=== PATIENT | female | born 1945 | race Caucasian/White ===

== ENCOUNTER 2016-08-13 13:33 | Emergency (ER) | payer MEDICARE, OTHER ==
[~2016-08-13 13:33] MED LIST: ASAB PO; CARDCD180 PO; CARDCD240 PO; DEMA20 PO; DENIES HOME MEDS; ELIQUIS 5 MG TAB5 MG PO; FISH OIL OTC PO; FLAG500TAB PO; FLECAINIDE100 MG PO; FLECAINIDE50 MG PO; IBU-200200 MG PO; KRILLOIL PO; MAGOX4 PO; MIRALAXPKT PO; MULTIVIT/MIN PO; MYLANTA LIQUID PO; NORV5 PO; POTASSIUM 99 PO; POTASSIUM 99MG OTC PO; POTASSIUM PO; PRILO PO; PROAIR HFA INH; REFRESH OPH; SYN.025B PO; TOPXL25 PO; VITAMIN B-12 LIQUID PO; VITAMIN D1000 UNI1 PO
[2016-08-13 14:08] LABS: BASOPHILS 0.4 %; BASOPHILS ABSOLUTE 0.03 10/3/uL (0.0-0.16); EOSINOPHILS ABSOLUTE 0.17 10/3/uL (0.0-0.53); ER CBC TAT 0 Hrs 09 Mins; HEMATOCRIT 41.7 % (36.0-48.0); HEMOGLOBIN 13.8 g/dL (12.0-16.0); IMMATURE GRANULOCYTES 0.4 %; IMMATURE GRANULOCYTES ABSOLUTE 0.03 10/3/uL (0.0-0.11); LYMPHOCYTES 20.4 %; LYMPHOCYTES ABSOLUTE 1.71 10/3/uL (0.67-4.30); MANUAL DIFF NO %; MEAN CORPUS HGB CONC 33.1 g/dL (32.0-36.0); MEAN CORPUSCULAR HEMOGLOB 27.8 pg (26.0-34.0); MEAN CORPUSCULAR VOLUME 83.9 fL (80-100); MEAN PLATELET VOLUME 9.4 fL (9.2-13.0); MONOCYTES 6.2 %; MONOCYTES ABSOLUTE 0.52 10/3/uL (0.21-1.20); NEUTROPHILS 70.6 %; NEUTROPHILS ABSOLUTE 5.91 10/3/uL (2.02-8.40); PLATELET COUNT 325 10/3/uL (150-400); RBC DISTRIBUTION WIDTH 14.4 % (12.0-16.0); RED CELL COUNT 4.97 10/6/uL (4.0-5.6); WHITE BLOOD CELLS 8.4 10/3/uL (4.5-10.5)
[2016-08-13 14:17] LABS: INTERNATIONAL NORMAL RATI 1.3 UNITS (-); PARTIAL THROMBO TIME 35.1 SEC (22.5-37.2); PROTIME (NOT ORD) 15.6 SEC (12.0-14.5)
[2016-08-13 14:25] LABS: CALCIUM, SERUM 9.1 MG/DL (8.5-10.4); CHEST PAIN PROFILE TAT 0 Hrs 26 Mins; CHLORIDE, SERUM 110 MMOL/L (96-112); CO2 (CARBON DIOXIDE) 28 MMOL/L (24-34); CREATININE 0.73 MG/DL (0.55-1.02); GFR AFRICAN AMERICAN 96 ML/MIN (>=60); GFR NON AFRICAN AMERICAN 83 ML/MIN (>=60); GLUCOSE, SERUM 98 MG/DL (60-99); POTASSIUM, SERUM 4.2 MMOL/L (3.5-5.3); SODIUM, SERUM 144 MMOL/L (135-148); TROPONIN I <0.02 NG/ML (<0.05)
[2016-08-13 14:26] LABS: BUN (BLOOD UREA NITROGEN) 9 MG/DL (6-23)
[2016-09-30] MEDS ORDERED: COREG25 PO (08:43)
[2016-09-30] MEDS ORDERED: POTASSIUM GLUCO99 MG PO (08:44)
[2016-09-30] MEDS ORDERED: MAGOX4 PO (08:44)
[2016-09-30] MEDS ORDERED: RYTHMOL150 MG PO (08:45)
[2016-09-30] MEDS ORDERED: CARDCD240 PO (12:14)
== END 2016-08-13 16:25 | disposition home or self-care (01) ==
LOC: ER 13:33
PROVIDERS: Emergency Medicine
DX: I48.91 Unspecified atrial fibrillation (principal); J45.909 Unspecified asthma, uncomplicated; I10 Essential (primary) hypertension; K21.9 Gastro-esophageal reflux disease without esophagitis; Z88.5 Allergy status to narcotic agent; Z88.8 Allergy status to other drugs, medicaments and biological substances; Z79.899 Other long term (current) drug therapy; Z79.82 Long term (current) use of aspirin
CPT/HCPCS: 71010; 80048; 83735; 84484; 85025; 85610; 85730; 93005; 96365; 96366; 99285; A9270-GY